=== PATIENT | female | born 1990 | race Caucasian/White ===

== ENCOUNTER 2018-07-18 13:43 | Emergency (ER) | payer SELFPAY, OTHER ==
[2018-07-18] MEDS: HYDROCODONE/APAP (5/325) TAB PO (16:54)
[2018-07-18] MEDS: KETOROLAC 60 MG INJ IM (17:05)
[2018-07-18 17:11] LABS: ADD UMIC YES; UR ASCORBIC ACID NEGATIVE (NEGATIVE); UR BACTERIA FEW /HPF (NONE SEEN); UR BILIRUBIN (Dip) NEGATIVE (NEGATIVE); UR BLOOD (Dip) NEGATIVE (NEGATIVE); UR CLARITY SLIGHTLY CLOUDY (CLEAR); UR COLOR YELLOW (YELLOW); UR GLUCOSE (Dip) NEGATIVE (NEGATIVE); UR KETONES (Dip) NEGATIVE (NEGATIVE); UR LEUKOCYTE ESTERASE (Dip) 2+ Leu/ul (NEGATIVE); UR MUCUS MODERATE /HPF (NONE SEEN); UR NITRITE (Dip) NEGATIVE (NEGATIVE); UR RBC 3 /HPF (0-5); UR SPECIFIC GRAVITY (Dip) 1.029 (1.003-1.030); UR SQUAMOUS EPITHELIAL CELL MODERATE /HPF (FEW); UR TOTAL PROTEIN (Dip) NEGATIVE (NEGATIVE); UR UROBILINOGEN (Dip) 1+ mg/dL (NEGATIVE); UR WBC 110 /HPF (0-5)
[2018-07-18] MEDS: CEPHALEXIN 500 MG CAP PO (18:30)
[2018-07-18] MEDS: AZITHROMYCIN 250 MG TAB PO (19:05)
[2018-07-18] MEDS: CEFTRIAXONE 250 MG INJ IM (19:05)
== END 2018-07-18 19:34 | disposition home or self-care (01) ==
LOC: FTE 13:43
DX: N73.9 Female pelvic inflammatory disease, unspecified (principal); J45.909 Unspecified asthma, uncomplicated
CPT/HCPCS: 76856; 81001; 81025; 87591; 96372; 99285-25

== ENCOUNTER 2018-09-22 17:32 | Emergency (ER) | payer SELFPAY | END 2018-09-22 18:57 | disposition left against medical advice (07) | LOC: FTE 18:57 | DX: Z53.21 Procedure and treatment not carried out due to patient leaving prior to being seen by health care provider (principal) ==

== ENCOUNTER 2018-11-17 06:29 | Emergency (ER) | payer MEDICAID ==
[2018-11-17] MEDS ORDERED: ONDANSETRON (ODT) 4 MG TAB ODT (07:37)
[2018-11-17] MEDS: HYDROmorphONE 1 MG/ML SYG IV (07:40)
[2018-11-17] MEDS: ONDANSETRON 4 MG INJ IV (07:40)
[2018-11-17 07:50] LABS: ADD MAN DIFF? NO
[2018-11-17 07:54] LABS: WHITE BLOOD COUNT 9.9 10^3/ul (4.8-10.8)
[2018-11-17 07:54] LABS: BASOPHILS % 0.4 % (0.0-2.0); EOSINOPHILS # 0.2 10^3/ul (0.0-0.5); EOSINOPHILS % 1.6 % (0.0-7.0); HEMATOCRIT 36.6 % (37.0-47.0); HEMOGLOBIN 11.6 g/dl (12.0-16.0); LYMPHOCYTES # 1.4 10^3/ul (0.8-2.9); MEAN CORPUSCULAR HEMOGLOBIN 28.4 pg (29.0-33.0); MEAN CORPUSCULAR HGB CONC 31.7 g/dl (32.0-37.0); MEAN CORPUSCULAR VOLUME 89.7 fl (82.0-101.0); MONOCYTE # 0.7 10^3/ul (0.3-0.9); MONOCYTES % 7.3 % (0.0-11.0); NEUTROPHIL # 7.6 10^3/ul (1.6-7.5); NEUTROPHILS % 76.4 % (39.0-77.0); PLATELET COUNT 347 10^3/UL (140-415); RED BLOOD COUNT 4.08 10^6/ul (4.20-5.40); RED CELL DISTRIBUTION WIDTH 13.4 % (11.5-14.5)
[2018-11-17 08:10] LABS: ALANINE AMINOTRANSFERASE 16 IU/L (13-69); ALBUMIN 4.1 g/dl (3.3-4.9); ALKALINE PHOSPHATASE 71 IU/L (42-121); ANION GAP 9 (5-13); ASPARTATE AMINO TRANSFERASE 16 IU/L (15-46); BILIRUBIN,INDIRECT 0.7 mg/dl (0-1.1); BILIRUBIN,TOTAL 0.7 mg/dl (0.2-1.3); BLOOD UREA NITROGEN 18 mg/dl (7-20); CALCIUM 9.3 mg/dl (8.4-10.2); CARBON DIOXIDE 23 mmol/L (21-31); CHLORIDE 108 mmol/L (97-110); CREATININE 0.63 mg/dl (0.44-1.00); Estimated GFR > 60 mL/min (>60); GLUCOSE 95 mg/dl (70-220); LIPASE 118 U/L (23-300); SODIUM 140 mmol/L (135-144); TOTAL PROTEIN 7.8 g/dl (6.1-8.1)
== END 2018-11-17 09:32 | disposition home or self-care (01) ==
LOC: E/R 06:29
DX: R10.84 Generalized abdominal pain (principal); J45.909 Unspecified asthma, uncomplicated; R11.0 Nausea
CPT/HCPCS: 36415; 76705; 80053; 81025; 83690; 84702; 85025; 96374; 96375; 99285-25

== ENCOUNTER 2019-01-25 22:22 | Emergency (ER) | payer SELFPAY, MEDICAID | END 2019-01-26 00:02 | disposition left against medical advice (07) | LOC: FTE 22:22 | DX: Z53.21 Procedure and treatment not carried out due to patient leaving prior to being seen by health care provider (principal) ==

== ENCOUNTER 2019-04-11 02:38 | Emergency (ER) | payer OTHER | END 2019-04-11 04:09 | disposition home or self-care (01) | LOC: FTE 02:38 | DX: O99.611 Diseases of the digestive system complicating pregnancy, first trimester (principal); K59.00 Constipation, unspecified; O99.511 Diseases of the respiratory system complicating pregnancy, first trimester; J45.909 Unspecified asthma, uncomplicated; Z3A.10 10 weeks gestation of pregnancy | CPT/HCPCS: 99282; Z7502 ==

== ENCOUNTER 2019-05-02 01:37 | Emergency (ER) | payer SELFPAY, OTHER | END 2019-05-02 03:44 | disposition left against medical advice (07) | LOC: FTE 01:37 | DX: Z53.21 Procedure and treatment not carried out due to patient leaving prior to being seen by health care provider (principal) ==